=== PATIENT | female | born 1935 | race Caucasian/White ===

== ENCOUNTER 2019-06-10 11:19 | Inpatient (IN) | payer MEDICARE ==
[~2019-06-10] VITALS: Ht 157.5 cm; Wt 52.9 kg
--- NOTE | 2019-06-10 11:20 | NUR ---
ED Nurse Note: [facility] more than usual. Pt is AOx1 right now, noted weakness on LT extremity, pt is verbally responsive noted with episodes of confusion. Placed on bed and gown; hooked to hydroelectric systems technician; VSS, on RA. Will continue to monitor.
[2019-06-10] MEDS ORDERED: DULCOLAX10 MG RC (11:33)
[2019-06-10] MEDS ORDERED: ASPIR 8181 MG ORAL (11:33)
[2019-06-10] MEDS ORDERED: SENOKOT-S TABL1 EACH PO (11:33)
[2019-06-10] MEDS ORDERED: FLEET ENEMA133 M1 RC (11:33)
[2019-06-10] MEDS ORDERED: SYNTHROID100 MCG ORAL (11:33)
[2019-06-10] MEDS ORDERED: ATORVASTATIN CA40 MG ORAL (11:33)
[2019-06-10] MEDS ORDERED: MILK OF MA400 MG/51 ORAL (11:33)
[2019-06-10] MEDS ORDERED: CEPACOL SORE T1 EAC5 MM (11:33)
[2019-06-10] MEDS ORDERED: ACETAMINOPHEN325 M1 ORAL (11:33)
[2019-06-10] MEDS ORDERED: CYMBALTA60 MG ORAL (11:33)
[2019-06-10] MEDS ORDERED: NUEDEXTA 20-101 EAC1 PO (11:33)
[2019-06-10 11:45] VITALS: BP 112/60
--- NOTE | 2019-06-10 11:45 | NUR ---
ED Nurse Note: Pt went on head CT via gurisi accompanied by alfreda.
--- NOTE | 2019-06-10 12:06 | NUR ---
ED Nurse Note: Pt returned from CT on stable condition.
--- NOTE | 2019-06-10 12:07 | NUR ---
ED Nurse Note: x-ray on bedside.
--- NOTE | 2019-06-10 12:12 | Diagnostic Imaging Report ---
Indications: Altered mental status, history of stroke Technique: Spiral acquisitions obtained through the brain. Angled axial and coronal 5 x 5 mm slices were reconstructed. Total dose length product 1072 mGycm. CTDI vol(s) 53 mGy. Dose reduction achieved using automated exposure control Comparison: None. Findings: There is age-related enlargement of the ventricles and extra axial CSF spaces. There is periventricular low-attenuation, consistent with chronic microvascular ischemic changes There is an old lacunar infarct in the right woods radiata. There is some low-attenuation in the right side of the reyna and midbrain, could indicate a subacute lacunar infarct. There is encephalomalacia in the inferior left frontal lobe. No acute intracranial hemorrhage. No mass effect nor midline shift. Old deep white matter infarct is seen in the left frontal lobe. The calvarium is intact. Visualized orbits and sinuses are unremarkable. The mastoids are clear Impression: Chronic and age-related changes, as described Multiple old infarcts Possible subacute infarct of the right midbrain and reyna. MRI may be useful to clarify if clinically indicated Negative for acute intracranial bleed or mass effect The CT scanner at [facility] is accredited by the [employer] and the scans are performed using protocols designed to limit radiation exposure to as low as reasonably achievable to attain images of sufficient resolution adequate for diagnostic evaluation.
--- NOTE | 2019-06-10 12:18 | Emergency Room Report ---
History of Present Illness General Chief Complaint: Altered Level of Consciousness Source: Medical Record Present Illness HPI Patient presents from nursing facility with reports of change in mental status Patient's family is here and reports that the patient currently appears to be at baseline response level however over the past 3 days has had episodes of lethargy and weakness Patient had significant CVA several months ago with left-sided deficit also affecting her speech There was no reports of vomiting or diarrhea unknown regarding fevers Allergies: Coded Allergies: No Known Allergies (Unverified , 06/10/19) Patient History Limited by: medical condition Past Medical History: see triage record Reviewed Nursing Documentation: PMH: Agreed; PSxH: Agreed Nursing Documentation-PMH Hx Cerebrovascular Accident: Yes - left side weakness Review of Systems All Other Systems: limited - Other than the ones mentioned in the history of present illness all others are reviewed however they do stay limited due to the patient's mental status Physical Exam Vital Signs Date Time Temp Pulse Resp B/P (MAP) Pulse Ox O2 Delivery O2 Flow Rate FiO2 06/10/19 11:10 98.6 80 20 112/60 (77) 95 Room Air Sp02 EP Interpretation: reviewed, normal General Appearance: mild distress - Patient presents by paramedics with a wet cloth on her forehead eyes are closed Head: normocephalic, atraumatic Eyes: bilateral eye PERRL ENT: dry mucus membranes Neck: supple Respiratory: no respiratory distress, no retraction Cardiovascular #1: regular rate, rhythm Gastrointestinal: non tender, soft Musculoskeletal: other - Significant left-sided weakness patient not able to raise left arm Neurologic: other - Patient awakens with some physical stimuli, maintaining appropriate airway and gag reflex speech appears to be slurred however family reports, that this is baseline since her stroke Psychiatric: normal inspection Skin: no rash Lymphatic: no adenopathy Medical Decision Making Diagnostic Impression: Primary Impression: Altered level of consciousness Additional Impression: Dehydration ER Course Patient is a fairly complex patient with multiple differential to consideration including but not limited to cardiac cardiopulmonary neurological,, neurosurgical and vascular emergencies Patient's last known well is over 3 days old, and is unclear regarding the specific timeline Family reporting ' few days ago' patient appeared less interactive CT imaging showing questionable subacute findings in the midbrain and reyna Patient does not meet criteria for acute thrombolytics Also DNR status And admitted for further inpatient care Labs Test 06/10/19 12:16 White Blood Count 8.2 K/UL (4.8-10.8) Red Blood Count 3.64 M/UL (4.20-5.40) Hemoglobin 11.6 G/DL (12.0-16.0) Hematocrit 34.6 % (37.0-47.0) Mean Corpuscular Volume 95 FL (80-99) Mean Corpuscular Hemoglobin 31.8 PG (27.0-31.0) Mean Corpuscular Hemoglobin Concent 33.3 G/DL (32.0-36.0) Red Cell Distribution Width 12.4 % (11.6-14.8) Platelet Count 477 K/UL (150-450) Mean Platelet Volume 6.2 FL (6.5-10.1) Neutrophils (%) (Auto) 74.3 % (45.0-75.0) Lymphocytes (%) (Auto) 10.6 % (20.0-45.0) Monocytes (%) (Auto) 10.7 % (1.0-10.0) Eosinophils (%) (Auto) 2.4 % (0.0-3.0) Basophils (%) (Auto) 2.0 % (0.0-2.0) Sodium Level 137 MMOL/L (136-145) Potassium Level 4.2 MMOL/L (3.5-5.1) Chloride Level 99 MMOL/L (98-107) Carbon Dioxide Level 30 MMOL/L (21-32) Anion Gap 8 mmol/L (5-15) Blood Urea Nitrogen 16 mg/dL (7-18) Creatinine 0.6 MG/DL (0.55-1.30) Estimat Glomerular Filtration Rate > 60 mL/min (>60) Glucose Level 100 MG/DL (74-106) Lactic Acid Level 1.40 mmol/L (0.4-2.0) Calcium Level 9.9 MG/DL (8.5-10.1) Total Bilirubin 0.3 MG/DL (0.2-1.0) Aspartate Amino Transf (AST/SGOT) 27 U/L (15-37) Alanine Aminotransferase (ALT/SGPT) 20 U/L (12-78) Alkaline Phosphatase 137 U/L (46-116) Total Creatine Kinase 36 U/L (26-308) Creatine Kinase MB 1.2 NG/ML (0.0-3.6) Creatine Kinase MB Relative Index 3.3 Troponin I 0.000 ng/mL (0.000-0.056) Pro-B-Type Natriuretic Peptide 271 pg/mL (0-125) Total Protein 7.2 G/DL (6.4-8.2) Albumin 2.9 G/DL (3.4-5.0) Globulin 4.3 g/dL Albumin/Globulin Ratio 0.7 (1.0-2.7) Lipase 284 U/L (73-393) Rhythm Strip Diag. Results EP Interpretation: yes Rate: 78 Rhythm: NSR, no PVC's, no ectopy Chest X-Ray Diagnostic Results Chest X-Ray Diagnostic Results : Chest X-Ray Ordered: Yes # of Views/Limited/Complete: 1 View Indication: Chest Pain EP Interpretation: Yes Interpretation: no consolidation, no effusion, no pneumothorax Impression: No acute disease Electronically Signed by: Roseann Grayson DO CT/MRI/US Diagnostic Results CT/MRI/US Diagnostic Results : Impression CT head: Impression: Chronic and age-related changes, as described Multiple old infarcts Possible subacute infarct of the right midbrain and reyna. MRI may be useful to clarify if clinically indicated Negative for acute intracranial bleed or mass effect Last Vital Signs Date Time Temp Pulse Resp B/P (MAP) Pulse Ox O2 Delivery O2 Flow Rate FiO2 06/10/19 11:10 98.6 80 20 112/60 (77) 95 Room Air Status: unchanged Disposition: ADMITTED INPATIENT Condition: Critical Roseann Grayson DO Jun 10, 2019 12:18
[2019-06-10 12:52] VITALS: BP 142/67
--- NOTE | 2019-06-10 12:52 | Diagnostic Imaging Report ---
Indication: Chest pain Technique: One view of the chest Comparison: none Findings: There is a large hiatal hernia. There is evidence of a left-sided pleural effusion. There may be some atelectasis or consolidation at the left lung base. Right lung pleural space, left upper lung are clear. The heart is borderline enlarged. Impression: Left basilar pleural fluid and possibly parenchymal atelectasis and/or consolidation Large hiatal hernia Borderline cardiomegaly
[2019-06-10 12:55] LABS: EOSINOPHILS % (AUTO) 2.4 % (0.0-3.0); HEMATOCRIT 34.6 % (37.0-47.0); HEMOGLOBIN 11.6 G/DL (12.0-16.0); LYMPHOCYTES % (AUTO) 10.6 % (20.0-45.0); MEAN CORPUSCULAR VOLUME 95 FL (80-99); MONOCYTES % (AUTO) 10.7 % (1.0-10.0); NEUTROPHILS % (AUTO) 74.3 % (45.0-75.0); PLATELET COUNT 477 K/UL (150-450); RED BLOOD COUNT 3.64 M/UL (4.20-5.40); RED CELL DISTRIBUTION WIDTH 12.4 % (11.6-14.8); WHITE BLOOD COUNT 8.2 K/UL (4.8-10.8)
[2019-06-10 13:02] LABS: ANION GAP 8 mmol/L (5-15); BLOOD UREA NITROGEN 16 mg/dL (7-18); CALCIUM 9.9 MG/DL (8.5-10.1); CARBON DIOXIDE 30 MMOL/L (21-32); CHLORIDE 99 MMOL/L (98-107); CREATININE 0.6 MG/DL (0.55-1.30); POTASSIUM 4.2 MMOL/L (3.5-5.1); SODIUM 137 MMOL/L (136-145)
[2019-06-10 13:17] LABS: ALANINE AMINOTRANSFERASE 20 U/L (12-78); ALBUMIN 2.9 G/DL (3.4-5.0); ALBUMIN/GLOBULIN RATIO 0.7 (1.0-2.7); ALKALINE PHOSPHATASE 137 U/L (46-116); ASPARTATE AMINO TRANSFERASE 27 U/L (15-37); BILIRUBIN,TOTAL 0.3 MG/DL (0.2-1.0); CKMB 1.2 NG/ML (0.0-3.6); CREATINE KINASE 36 U/L (26-308)
--- NOTE | 2019-06-10 14:18 | NUR ---
ED Nurse Note: Pt went on MRI, on stable condition.
[2019-06-10 14:58] VITALS: BP 153/84
--- NOTE | 2019-06-10 15:42 | Diagnostic Imaging Report ---
Indication: Altered mental status Technique: sagittal T1 fast spin echo, axial T1 FLAIR, axial T2 FLAIR, axial T2 FS PROPELLER, axial T2* GRE, axial diffusion weighted images. ADC and exponential ADC maps generated Comparison: No comparison MRIs. Reference made to brain CT performed 2 hours prior Findings: There are multiple scattered foci of restricted diffusion. There is a punctate cortical focus in the high right parietal lobe. There is a small punctate focus in the posterior right temporal white matter. There is a slightly larger, still small cortical abnormality in the right occipital lobe periphery. There is a subtle and fairly faint focus in the posterior right parietal rosales-white junction, image 23 of series 3. There is a rim of abnormal diffusion activity surrounding lacunar infarct in the right woods radiata. The rim appears to be low signal on the ADC map, so could represent a late subacute component of that infarct versus reinfarction. No abnormal foci of restricted diffusion are demonstrated to correspond to the pontine/midbrain findings on recent CT scan and there is no T2 abnormality; that finding was presumably artifactual, probably due to beam hardening artifact. No acute hemorrhage. No mass effect nor midline shift. There is periventricular deep white matter high T2 signal, consistent with chronic microvascular ischemic change. There is mild age-related enlargement of the ventricles and extra axial CSF spaces. Visualized orbits and sinuses are unremarkable. There is sclerosis of the nasofrontal junction, also evident an better demonstrated on prior CT scan. Impression: Multiple right-sided small acute infarcts, appearing to be within the right posterior cerebral artery distribution Slightly increased diffusion signal surrounding remote right woods radiata lacunar infarct, may indicate a late subacute component to that infarct or peripheral reinfarction No abnormality of the midbrain demonstrated; findings reported on recent CT scan presumably artifactual Age-related volume loss and chronic periventricular deep white matter high T2 signal consistent with chronic microvascular ischemic change Images previously reviewed in person with Dr. Crawford
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
--- NOTE | 2019-06-10 17:15 | NUR ---
ED Nurse Note: Pt's VSS, satting at 96% on RA; NAD, daughter on bedside.
[2019-06-10 17:25] VITALS: BP 146/58
--- NOTE | 2019-06-10 17:25 | NUR ---
ED Nurse Note: Offered sandwich and apple juice.
--- NOTE | 2019-06-10 19:15 | NUR ---
HAND-OFF: Report given to Lesvia ANDRADE.
--- NOTE | 2019-06-10 19:35 | NUR ---
ED Nurse Note: Recieved report to resume care, pt in bed awake and alert and eating dinner tray with family at bedside, pt on monitoring, IV site patent, denies chest pain or any pain, pt has room for hopspital admisison, will call report when bed available and transfer for admit, nad or changes noted at this time.
[2019-06-10 19:45] VITALS: BP 140/66
--- NOTE | 2019-06-10 20:05 | NUR ---
ED Nurse Note: Report called to floor nurse LUPE Hurtado, pt being taken to floor unit via chyaarisi for admisison, family at bedside and present, pt being taken to unit via penny with LUPE Coyne and [employer].
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
[2019-06-10 20:30] VITALS: BP 136/62
[2019-06-10] MEDS ORDERED: Omnipaque 350 100ml vial INJ PRN ×2 (20:30)
--- NOTE | 2019-06-10 20:30 | NUR ---
NURSE NOTES: Patient arrived to the unit @2029 via gurney accompanied by two RN's. Patient's daughter also arrived along with the patient. Received report from Lesvia, the ED RN. Patient is awake, alert, and responsive. Breathing regular and unlabored on RA with no S/S of SOB noted at this time. Patient denies any pain or discomfort at this time. IV access is on the LFA, 20G, patent, intact, and saline locked. Patient's left side is weak/paralyzed due to previous CVA per the patient's daughter. Patient has a Khan catheter in place per MD orders. Belongings list reviewed and signed. Placed patient on the security monitor, reading sinus rhythm. Bed in lowest position, breaks engaged, side rails up x3, and call light is within reach at all times. All other needs attended to, vitals within normal limits, patient remains stable, will continue to monitor.
--- NOTE | 2019-06-10 21:00 | NUR ---
NURSE NOTES: Upon assessment of the patient's Khan catheter, noted that it was not draining properly when they placed it in the ER. Removed the catheter and re-inserted a new one. Khan catheter is now properly in place, draining yellow urine. Patient remains in stable condition.
[2019-06-10] MEDS: Atorvastatin 20mg tab ORAL SCH (22:48)
[2019-06-10] MEDS: Nuedexta Capsule 20/10mg ORAL SCH (22:49)
[2019-06-11] VITALS: BP 140/59
[2019-06-11 04:00] VITALS: BP 123/50
--- NOTE | 2019-06-11 07:18 | NUR ---
HAND-OFF: Report given to LUPE Ng. Patient remains stable, plan of care endorsed.
--- NOTE | 2019-06-11 07:21 | NUR ---
NURSE NOTES: Nurse report given by LUPE Hurtado. Patient's sleeping in bed, breathing regular and unlabored, no s/s of pain, no s/s of distress or SOB. Bed low and locked, call light within reach, side rails x 3, bed alarm is armed. IV is saline locked, flushed, asymptomatic. Khan is intact, draining well, no sediments noted in the urine, foul urine smell noted. Will continue to monitor.
[2019-06-11 07:40] LABS: BASOPHILS % (AUTO) 2.1 % (0.0-2.0); EOSINOPHILS % (AUTO) 3.5 % (0.0-3.0); HEMATOCRIT 32.9 % (37.0-47.0); HEMOGLOBIN 11.1 G/DL (12.0-16.0); LYMPHOCYTES % (AUTO) 12.4 % (20.0-45.0); MEAN CORPUSCULAR VOLUME 95 FL (80-99); MONOCYTES % (AUTO) 13.9 % (1.0-10.0); NEUTROPHILS % (AUTO) 68.1 % (45.0-75.0); PLATELET COUNT 495 K/UL (150-450); RED BLOOD COUNT 3.47 M/UL (4.20-5.40); RED CELL DISTRIBUTION WIDTH 12.3 % (11.6-14.8); WHITE BLOOD COUNT 7.2 K/UL (4.8-10.8)
[2019-06-11 08:00] VITALS: BP 140/67
[2019-06-11 08:10] LABS: ANION GAP 9 mmol/L (5-15); BLOOD UREA NITROGEN 15 mg/dL (7-18); CALCIUM 9.6 MG/DL (8.5-10.1); CARBON DIOXIDE 29 MMOL/L (21-32); CHLORIDE 100 MMOL/L (98-107); CREATININE 0.6 MG/DL (0.55-1.30); POTASSIUM 3.8 MMOL/L (3.5-5.1); SODIUM 138 MMOL/L (136-145)
[2019-06-11] MEDS: Nuedexta Capsule 20/10mg ORAL SCH ×2 (10:09→22:11)
--- NOTE | 2019-06-11 10:31 | Diagnostic Imaging Report ---
Indication: Left-sided weakness Technique: Grayscale and duplex images of the bilateral extracranial carotid vessels Comparison: none Findings: Bilaterally, grayscale and duplex images demonstrate atherosclerotic plaquing resulting in less than 50% diameter stenosis. Normal Doppler flow velocities and waveforms. Patent bilateral vertebral arteries, antegrade flow. Impression: Less than 50% diameter stenosis bilaterally All stenosis was measured based on the NASCET criteria. Velocity criteria are extrapolated from diameter data as defined by the Society of radiologists in ultrasound consensus conference. Radiology 2003:229; 340-346
[2019-06-11 12:00] VITALS: BP 131/59
--- NOTE | 2019-06-11 13:55 | Cardiology Progress Note ---
Assessment/Plan Assessment/Plan [id number] mutipl [place]va in [facility] makes less likley that a cardioembolic issue is present bubbl estudy was neg antiplt statin tele observation ziopatch as out pt d/w dtr Objective Last 24 Hour Vital Signs Date Time Temp Pulse Resp B/P (MAP) Pulse Ox O2 Delivery O2 Flow Rate FiO2 06/11/19 12:00 80 06/11/19 12:00 97.7 76 18 131/59 (83) 97 06/11/19 09:00 Room Air 06/11/19 08:00 74 06/11/19 08:00 97.9 88 20 140/67 (91) 98 06/11/19 04:00 75 06/11/19 04:00 98.0 78 20 123/50 (74) 97 06/11/19 00:00 78 06/11/19 00:00 98.4 70 20 140/59 (86) 96 06/10/19 22:57 Room Air 06/10/19 20:30 78 06/10/19 20:30 97.5 77 20 136/62 (86) 95 06/10/19 20:15 98.6 90 16 140/66 98 Room Air 06/10/19 19:45 98.6 90 16 140/66 98 Room Air 06/10/19 17:25 98.6 97 18 146/58 96 Room Air 06/10/19 14:58 98.6 82 15 153/84 95 Room Air Intake and Output 06/10/19 06/11/19 19:00 07:00 Intake Total 120 ml Output Total 150 ml Balance -30 ml Intake Oral 120 ml Output Urine Total 150 ml # Voids 2 Laboratory Tests Test 06/11/19 05:46 White Blood Count 7.2 K/UL (4.8-10.8) Red Blood Count 3.47 M/UL (4.20-5.40) L Hemoglobin 11.1 G/DL (12.0-16.0) L Hematocrit 32.9 % (37.0-47.0) L Mean Corpuscular Volume 95 FL (80-99) Mean Corpuscular Hemoglobin 32.0 PG (27.0-31.0) H Mean Corpuscular Hemoglobin Concent 33.8 G/DL (32.0-36.0) Red Cell Distribution Width 12.3 % (11.6-14.8) Platelet Count 495 K/UL (150-450) H Mean Platelet Volume 5.8 FL (6.5-10.1) L Neutrophils (%) (Auto) 68.1 % (45.0-75.0) Lymphocytes (%) (Auto) 12.4 % (20.0-45.0) L Monocytes (%) (Auto) 13.9 % (1.0-10.0) H Eosinophils (%) (Auto) 3.5 % (0.0-3.0) H Basophils (%) (Auto) 2.1 % (0.0-2.0) H Sodium Level 138 MMOL/L (136-145) Potassium Level 3.8 MMOL/L (3.5-5.1) Chloride Level 100 MMOL/L (98-107) Carbon Dioxide Level 29 MMOL/L (21-32) Anion Gap 9 mmol/L (5-15) Blood Urea Nitrogen 15 mg/dL (7-18) Creatinine 0.6 MG/DL (0.55-1.30) Estimat Glomerular Filtration Rate > 60 mL/min (>60) Glucose Level 85 MG/DL (74-106) Calcium Level 9.6 MG/DL (8.5-10.1) Thyroid Stimulating Hormone (TSH) 0.281 uiU/mL (0.358-3.740) Microbiology Date/Time Source Procedure Growth Status 06/10/19 12:16 Nasal Nares - Final Complete 06/10/19 12:16 Nasal Nares - Final Complete Danny Villagran MD Jun 11, 2019 13:55
--- NOTE | 2019-06-11 13:55 | NUR ---
PT EVALUATION NOTE Patient seen for initial evaluation. Patient presents with weakness following diagnosis of CVA with impaired balance and mobility. Patient requires max assist of 2 to come to sitting at the EOB. Patient unable to sit unsupported at the EOB, requires max assistance to sit at EOB. Patient can sit at EOB without assistance if holding on to bedrail with R hand. Poor head control in sitting. Patient unable to stand or transfer at this time due to weakness. Patient will benefit from skilled inpatient PT intervention to address strength, balance and safety to increase level of functional mobility. Recommend discharge to SNF for further rehab once medically cleared by MD. DME needs to be determined based on patient's progress. Addendum: 06/11/19 at 1445 by EDITH LEE PT Amended: Links added.
--- NOTE | 2019-06-11 15:32 | Diagnostic Imaging Report ---
. ndication: Altered mental status, multiple infarcts on prior brain MRI Technique: IV administration nonionic contrast. Spiral acquisitions obtained through the neck. Multiplanar and 3-D reconstructions were generated. Total dose length product 132 mGycm. CTDIvol(s) one, 34, 3 mGy. Dose reduction achieved using automated exposure control Comparison: none Findings: Unremarkable aortic arch. Patent nonstenotic right brachiocephalic artery. Patent nonstenotic right common carotid artery. There is atherosclerotic plaquing at the origin of the right internal carotid artery, but no significant stenosis is evident. Patent nonstenotic but tortuous left common carotid artery. The left internal carotid artery is patent, without significant stenosis. Patent nonstenotic right proximal subclavian artery. Patent nonstenotic right vertebral artery. Vertebral arteries are codominant. There is separate origin of the left vertebral artery off the aortic arch. Left vertebral artery is patent, without significant stenosis. The upper aerodigestive tract is unremarkable. No cervical mass or adenopathy demonstrated. There is a subcentimeter nodule in the upper pole of the left thyroid lobe. The included upper lungs are clear. The included upper mediastinum is unremarkable. The bones demonstrate degenerative spondylosis changes of the cervical spine Impression: No evidence of significant extracranial cerebrovascular insufficiency Incidental findings as noted, including subcentimeter left upper pole thyroid nodule, degenerative cervical spondylosis The CT scanner at [facility] is accredited by the [employer] and the scans are performed using protocols designed to limit radiation exposure to as low as reasonably achievable to attain images of sufficient resolution adequate for diagnostic evaluation.
[2019-06-11 16:00] VITALS: BP 121/68
--- NOTE | 2019-06-11 17:01 | Geriatric Progress Note ---
Assessment/Plan Problems: (1) Embolic cerebral infarction (2) Hemiparesis affecting nondominant side as late effect of cerebrovascular accident (3) Frontal lobe and executive function deficit (4) History of traumatic head injury (5) History of trauma to spine (6) Hypertension (7) Dyslipidemia (8) Chronic pain syndrome (9) Pseudobulbar affect (10) Osteoarthritis (11) History of joint surgery Assessment/Plan Discussed with Dr. Jarquin, Dr. Villagran. Given lack of discernible posterior circulation stenosis or malformation, and lack of cardiac source, substitution of Plavix appears to be only available intervention. Frequent PACs does raise possibility of paf, but no evidence thus far. Should have Ziopatch as outpatient. Because oversupplementation with T4 might predispose to dysrhythmia, will check T4, total T3, and decrease supplement to 88mcg. D/c Khan, monitor output. Checked with [facility], will not have coverage at SNF level because of recent stay. Discussed in detail with dtr, wants to d/c to home in [place], needs hospital bed, other DME. Some arrangements may have been made by [facility], but will need additional assistance from d/c planning Discussed with: patient, family, hospital staff Subjective Interval Events Patient alert, reports occasional mild L chest pain, but not present currently. Otherwise reports being comfortable. Per staff, eating well when fed. P.T. documents needing A x 2 to EOB. Labs notable only for mildly suppressed TSH. Imaging reveals <50% stenosis on u/s of vertebral artery. CTA reveals atherosclerosis but no clinically significant stenosis. Echo unrevealing without a shunt. Constitutional: Reports: pain - as above Eye: Reports: blurred vision - but not definitively changed Respiratory: Denies: shortness of breath Gastrointestinal/Abdominal: Denies: abdominal pain, nausea Genitourinary: Denies: dysuria Geriatric Geriatric Last 24 Hour Vital Signs Date Time Temp Pulse Resp B/P (MAP) Pulse Ox O2 Delivery O2 Flow Rate FiO2 06/11/19 12:00 80 06/11/19 12:00 97.7 76 18 131/59 (83) 97 06/11/19 09:00 Room Air 06/11/19 08:00 74 06/11/19 08:00 97.9 88 20 140/67 (91) 98 06/11/19 04:00 75 06/11/19 04:00 98.0 78 20 123/50 (74) 97 06/11/19 00:00 78 06/11/19 00:00 98.4 70 20 140/59 (86) 96 06/10/19 22:57 Room Air 06/10/19 20:30 78 06/10/19 20:30 97.5 77 20 136/62 (86) 95 06/10/19 20:15 98.6 90 16 140/66 98 Room Air 06/10/19 19:45 98.6 90 16 140/66 98 Room Air 06/10/19 17:25 98.6 97 18 146/58 96 Room Air Intake and Output 06/10/19 06/11/19 19:00 07:00 Intake Total 120 ml Output Total 150 ml Balance -30 ml Intake Oral 120 ml Output Urine Total 150 ml # Voids 2 Laboratory Tests Test 06/11/19 05:46 White Blood Count 7.2 K/UL (4.8-10.8) Red Blood Count 3.47 M/UL (4.20-5.40) L Hemoglobin 11.1 G/DL (12.0-16.0) L Hematocrit 32.9 % (37.0-47.0) L Mean Corpuscular Volume 95 FL (80-99) Mean Corpuscular Hemoglobin 32.0 PG (27.0-31.0) H Mean Corpuscular Hemoglobin Concent 33.8 G/DL (32.0-36.0) Red Cell Distribution Width 12.3 % (11.6-14.8) Platelet Count 495 K/UL (150-450) H Mean Platelet Volume 5.8 FL (6.5-10.1) L Neutrophils (%) (Auto) 68.1 % (45.0-75.0) Lymphocytes (%) (Auto) 12.4 % (20.0-45.0) L Monocytes (%) (Auto) 13.9 % (1.0-10.0) H Eosinophils (%) (Auto) 3.5 % (0.0-3.0) H Basophils (%) (Auto) 2.1 % (0.0-2.0) H Sodium Level 138 MMOL/L (136-145) Potassium Level 3.8 MMOL/L (3.5-5.1) Chloride Level 100 MMOL/L (98-107) Carbon Dioxide Level 29 MMOL/L (21-32) Anion Gap 9 mmol/L (5-15) Blood Urea Nitrogen 15 mg/dL (7-18) Creatinine 0.6 MG/DL (0.55-1.30) Estimat Glomerular Filtration Rate > 60 mL/min (>60) Glucose Level 85 MG/DL (74-106) Calcium Level 9.6 MG/DL (8.5-10.1) Thyroid Stimulating Hormone (TSH) 0.281 uiU/mL (0.358-3.740) Current Medications Medications (Trade) Dose Ordered Sig/Sharda Route PRN Reason Start Time Stop Time Status Last Admin Dose Admin Acetaminophen (Tylenol) 650 mg Q4H PRN ORAL Mild Pain (Pain Scale 1-3) 06/10/19 17:00 07/10/19 16:59 Acetaminophen (Tylenol) 650 mg Q4H PRN ORAL fever 06/10/19 17:00 07/10/19 16:59 Atorvastatin Calcium (Lipitor) 40 mg BEDTIME ORAL 06/10/19 21:00 07/10/19 20:59 06/10/19 22:48 Cetylpyridinium Chloride (Cepacol) 1 lozg Q2H PRN KIERAN Pain Scale (3-5) 06/10/19 17:00 07/10/19 16:59 Clopidogrel Bisulfate (Plavix) 75 mg DAILY ORAL 06/10/19 20:30 07/10/19 20:29 06/11/19 10:09 Dextromethorphan/ Quinidine (Nuedexta Capsule) 1 cap Q12HR ORAL 06/10/19 21:00 07/10/19 20:59 06/11/19 10:09 Dextrose (Dextrose 50%) 25 ml Q30M PRN IV Hypoglycemia 06/10/19 17:00 07/10/19 16:59 Dextrose (Dextrose 50%) 50 ml Q30M PRN IV Hypoglycemia 06/10/19 17:00 07/10/19 16:59 Duloxetine HCl (Cymbalta) 60 mg DAILY ORAL 06/11/19 09:00 07/11/19 08:59 06/11/19 10:09 Iohexol (Omnipaque) 100 mg NOW PRN INJ Radiology Procedure 06/10/19 20:30 06/12/19 20:23 Iohexol (Omnipaque) 100 mg NOW PRN INJ Radiology Procedure 06/10/19 20:30 06/12/19 20:23 Levothyroxine Sodium (Synthroid) 100 mcg DAILY@0630 ORAL 06/11/19 06:30 07/11/19 06:29 06/11/19 06:12 Height (Feet): 5 Height (Inches): 2.00 Weight (Pounds): 145 General Appearance: no apparent distress, alert Head: normocephalic, atraumatic Eyes: bilateral anicteric ENT: normal voice Neck: full range of motion, no mass Respiratory: lungs clear, decreased breath sounds Cardiovascular: regular rate, rhythm - frequent PACs on monitor Gastrointestinal: normal bowel sounds, non tender, soft, no mass, no organomegaly, non-distended Musculoskeletal: no calf tenderness Edema: no edema noted Generalized Neurologic: motor weakness - L hemiparesis without change Eros Lee MD Jun 11, 2019 17:01
--- NOTE | 2019-06-11 18:28 | NUR ---
NURSE NOTES: D/C elder per Dr. Lee's order. Output from the elder was 600cc. Elder catheter tip intact when removed, no bleeding. Will monitor for residual.
--- NOTE | 2019-06-11 19:24 | NUR ---
NURSE NOTES: Received report from LUPE Ng. Patient is in bed, awake and responsive. Breathing regular and unlabored on RA with no S/S of SOB noted at this time. Patient's food is still at bedside. Patient stated "I will eat a little more later." IV access is on LFA 20G, saline locked. Bed remains in lowest position, breaks engaged, bed-alarm on, side rails x3, and call light is within reach at all times. All other needs attended to, patient remains stable, will continue to monitor.
--- NOTE | 2019-06-11 19:24 | NUR ---
HAND-OFF: Report given to LUPE Hurtado. Patient's stable, plan of care endorsed.
--- NOTE | 2019-06-11 19:31 | NUR ---
CASE MANAGEMENT: REVIEW 83 YEAR OLD FEMALE BIBA FROM [facility] CC: ALOC . LETHARGY . WEAKNESS SI: ALOC T 98.6 HR 80 RR 20 BP 142/67 SAT 95% ROOM AIR PLT CT 477 BNP [address] IMAGING SHOWING QUESTIONABLE SUBACUTE FINDINGS IN THE MIDBRAIN AND SCOTT . NEGATIVE FOR ACUTE INTRACRANIAL BLEED OR MASS EFFECT IS: SYNTHROID 100MCG X1 PT EVAL PENDING PATIENT ADMITTED TO TELEMETRY UNIT 06/10/2019 DCP: PATIENT IS FROM [facility]
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
[2019-06-11 20:00] VITALS: BP 121/52
--- NOTE | 2019-06-11 21:45 | NUR ---
NURSE NOTES: Patient's post-void residual was 78mls. Able to void with no abnormalities.
[2019-06-11] MEDS: Atorvastatin 20mg tab ORAL SCH (22:11)
[2019-06-12] VITALS: BP 131/63
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
[2019-06-12 04:00] VITALS: BP 132/68
--- NOTE | 2019-06-12 07:29 | NUR ---
NURSE NOTES: Nurse report given by LUPE Hurtado. Patient's sleeping in bed with her eye masks on, appeared to be snoring, patient's laying semi-morrell, no s/s of distress or SOB, breathing regular and unlabored. Bed low and locked, call light within reach, side rails x 2, bed alarm is armed, cardiac surgeon is on. IV is saline locked, patent, flushed well and asymptomatic. Will continue to monitor.
--- NOTE | 2019-06-12 07:29 | NUR ---
HAND-OFF: Report given to LUPE Ng. Patient in stable condition, plan of care endorsed.
[2019-06-12 08:00] VITALS: BP 142/62
[2019-06-12 08:18] LABS: CHOLESTEROL 148 MG/DL (< 200); HDL CHOLESTEROL 69 MG/DL (40-60); TRIGLYCERIDES 49 MG/DL (30-150)
[2019-06-12] MEDS: Nuedexta Capsule 20/10mg ORAL SCH ×2 (09:26→21:10)
[2019-06-12 11:59] VITALS: BP 123/63
--- NOTE | 2019-06-12 12:58 | Diagnostic Imaging Report ---
Indication: Altered mental status Technique: Precontrast spiral acquisitions obtained through the brain. IV administration nonionic contrast. Arterial phase spiral acquisitions obtained through the brain. Multiplanar and 3-D reconstructions were generated. Total dose length product 863, 899mGycm. CTDIvol(s) 35, one, 34, 3, 35 mGy. Dose reduction achieved using automated exposure control Comparison: Noncontrast CT compared to 06/10/2019. Also comparison brain MRI 06/10/2019 Findings: Precontrast images again demonstrate an old lacunar infarct in the right woods radiata. Again demonstrated is age-related enlargement of the ventricles and extra-axial CSF spaces and fairly extensive periventricular deep white matter low-attenuation consistent with chronic microvascular ischemic change. Again demonstrated is an area of encephalomalacia in the inferior left frontal lobe inferiorly. Visualized orbits are unremarkable. Unusual sclerosis of the nasofrontal junction and inferior frontal bone again demonstrated. The mastoids are clear. The calvarium is intact. The orbits are unremarkable. Radiographic images demonstrate codominant bilateral distal vertebral arteries both PICA cyst are patent. Both superior cerebellar arteries are visualized, patent. The P1 segments of both posterior cerebral artery are patent without definite significant stenosis. The right posterior communicating artery is visualized, patent. However, there is a high-grade stenosis of the origin of the P2 segment of the right posterior cerebral artery. The distal posterior cerebral artery distal to this is patent, somewhat smaller in caliber than the contralateral side. Anterior circulation demonstrates patent nonstenotic distal internal carotid artery on the right. There is a high-grade stenosis of the right A1 segment. In addition, there is a near occlusive stenosis of the proximal A2 segment of the right anterior cerebral artery. There is also a high-grade stenosis of the proximal to mid pericallosal branch of the anterior cerebral artery on the right no anterior communicating artery is demonstrated. The right M1 segment is patent proximally without significant stenosis. However, there is a stenosis, likely significant, of the distal M1 segment. On the left, the distal internal carotid artery, anterior cerebral artery, middle cerebral artery and proximal branches appear to be patent without significant stenosis. No evidence of aneurysm or vascular malformation is demonstrated. The veins and dural sinuses appear unremarkable. No unusual serial phase contrast enhancement is evident. Impression: Multiple intracranial stenoses, including the proximal P2 segment of the right posterior cerebral artery, the distal M1 segment of the right middle cerebral artery, and the A2 segment and pericallosal branch of the right anterior cerebral artery Other stable noncontrast CT findings as reported above and previously Findings discussed by phone with Dr. Blackman at the time of interpretation The CT scanner at [facility] is accredited by the [employer] and the scans are performed using protocols designed to limit radiation exposure to as low as reasonably achievable to attain images of sufficient resolution adequate for diagnostic evaluation.
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
[2019-06-12 16:00] VITALS: BP 133/74
--- NOTE | 2019-06-12 17:24 | NUR ---
CASE MANAGEMENT:DISCHARGE PLANNING PATIENT HAS BEEN REFERRED TO [facility] P: [phone] F: [phone]
--- NOTE | 2019-06-12 18:05 | Geriatric Progress Note ---
Assessment/Plan Problems: (1) Embolic cerebral infarction (2) Hemiparesis affecting nondominant side as late effect of cerebrovascular accident (3) Frontal lobe and executive function deficit (4) History of traumatic head injury (5) History of trauma to spine (6) Hypertension (7) Dyslipidemia (8) Chronic pain syndrome (9) Pseudobulbar affect (10) Osteoarthritis (11) History of joint surgery (12) Hypothyroidism (acquired) (13) Iatrogenic hyperthyroidism Assessment/Plan Patient returning to baseline, however functionally quite dependent. Will be stable for d/c tomorrow, but dtr requires multiple DME including [facility] for care at home. Awaiting D/c planning contact. Decrease T4 to 75 mcg/d. Continue other tx including Plavix. Ziopatch study as outpatient. Patient counselled to avoid OTC supplements which might interact with prescribed medications. Discussed with: patient, family, hospital staff Subjective Interval Events Patient brighter, with more engagement, questions about her prior OTC vitamin supplements, etc. No acute sxs. Voiding OK with Khan out. Eating well. TSH suppressed, FT4 increased. Given recent data re supplementation in elderly , will further decrease T4 dose. Discussed with Dr. Jarquin, evidence of several areas of R posterior circulation stenosis, likely associated with strokes. Evidence of L posterior circulation disease as well. However, multiple acute sites still raise issue of cardiac embolic source or transient low flow state from dysrhythmia. Respiratory: Denies: shortness of breath Cardiovascular: Denies: chest pain Gastrointestinal/Abdominal: Denies: abdominal pain Genitourinary: Denies: dysuria Geriatric Geriatric Last 24 Hour Vital Signs Date Time Temp Pulse Resp B/P (MAP) Pulse Ox O2 Delivery O2 Flow Rate FiO2 06/12/19 16:00 97.3 76 18 133/74 (93) 95 06/12/19 12:00 75 06/12/19 11:59 97.1 73 16 123/63 (83) 95 06/12/19 09:00 Room Air 06/12/19 08:00 63 06/12/19 08:00 97.7 77 19 142/62 (88) 96 06/12/19 04:00 97.4 71 18 132/68 (89) 96 06/12/19 04:00 74 06/12/19 00:00 75 06/12/19 00:00 97.7 66 18 131/63 (85) 95 06/11/19 21:00 Room Air 06/11/19 20:00 97.0 85 18 121/52 (75) 94 06/11/19 20:00 90 Intake and Output 06/11/19 06/12/19 19:00 07:00 Intake Total 200 ml Output Total 600 ml Balance -400 ml Intake Oral 200 ml Output Urine Total 600 ml # Voids 2 Laboratory Tests Test 06/12/19 05:59 Troponin I 0.000 ng/mL (0.000-0.056) Triglycerides Level 49 MG/DL (30-150) Cholesterol Level 148 MG/DL (< 200) LDL Cholesterol 63 mg/dL (<100) HDL Cholesterol 69 MG/DL (40-60) H Cholesterol/HDL Ratio 2.1 (3.3-4.4) L Thyroid Stimulating Hormone (TSH) 0.290 uiU/mL (0.358-3.740) Free Thyroxine 1.64 NG/DL (0.76-1.46) H Triiodothyonine (T3) Pending Current Medications Medications (Trade) Dose Ordered Sig/Sharda Route PRN Reason Start Time Stop Time Status Last Admin Dose Admin Acetaminophen (Tylenol) 650 mg Q4H PRN ORAL Mild Pain (Pain Scale 1-3) 06/10/19 17:00 07/10/19 16:59 Acetaminophen (Tylenol) 650 mg Q4H PRN ORAL fever 06/10/19 17:00 07/10/19 16:59 Atorvastatin Calcium (Lipitor) 40 mg BEDTIME ORAL 06/10/19 21:00 07/10/19 20:59 06/11/19 22:11 Cetylpyridinium Chloride (Cepacol) 1 lozg Q2H PRN KIERAN Pain Scale (3-5) 06/10/19 17:00 07/10/19 16:59 Clopidogrel Bisulfate (Plavix) 75 mg DAILY ORAL 06/10/19 20:30 07/10/19 20:29 06/12/19 09:26 Dextromethorphan/ Quinidine (Nuedexta Capsule) 1 cap Q12HR ORAL 06/10/19 21:00 07/10/19 20:59 06/12/19 09:26 Dextrose (Dextrose 50%) 25 ml Q30M PRN IV Hypoglycemia 06/10/19 17:00 07/10/19 16:59 Dextrose (Dextrose 50%) 50 ml Q30M PRN IV Hypoglycemia 06/10/19 17:00 07/10/19 16:59 Duloxetine HCl (Cymbalta) 60 mg DAILY ORAL 06/11/19 09:00 07/11/19 08:59 06/12/19 09:26 Iohexol (Omnipaque) 100 mg NOW PRN INJ Radiology Procedure 06/10/19 20:30 06/12/19 20:23 Iohexol (Omnipaque) 100 mg NOW PRN INJ Radiology Procedure 06/10/19 20:30 06/12/19 20:23 Levothyroxine Sodium (Synthroid) 88 mcg DAILY@0630 ORAL 06/12/19 06:30 07/11/19 06:29 06/12/19 06:32 Height (Feet): 5 Height (Inches): 2.00 Weight (Pounds): 116 General Appearance: no apparent distress, alert Head: normocephalic, atraumatic Eyes: bilateral anicteric ENT: normal voice Neck: full range of motion, no mass Respiratory: lungs clear Cardiovascular: regular rate, rhythm Gastrointestinal: normal bowel sounds, non tender, soft, no mass, no organomegaly, non-distended Musculoskeletal: no calf tenderness Edema: no edema noted Generalized Neurologic: alert, oriented x3 - possibly 2 at times., responsive, other - L dense hemiparesis Eros Lee MD Jun 12, 2019 18:05
--- NOTE | 2019-06-12 19:30 | NUR ---
NURSE NOTES: Received pt and report from LUPE Lucas. Observed pt resting in bed with both eyes closed; arousable to voice. Pt is A/Ox3. monitoring manager is in placed; pt is NSR. IV site intact, asymptomatic, and patent. Bed is in the lowest position and locked. Call light and bedside table is within reach. No signs/symptoms of acute distress noted at this time. Will continue plan of care.
--- NOTE | 2019-06-12 19:36 | NUR ---
HAND-OFF: Report given to LUPE Chacon. Patient's stable, plan of care endorsed.
[2019-06-12 20:00] VITALS: BP 117/63
[2019-06-12] MEDS: Atorvastatin 20mg tab ORAL SCH (21:10)
--- NOTE | 2019-06-12 21:24 | Cardiology Progress Note ---
Assessment/Plan Assessment/Plan [id number] mutipl cva in [place] makes less likley that a cardioembolic issue is present bubbl estudy was neg antiplt statin tele observation ziopatch as out pt d/w dtr Objective Last 24 Hour Vital Signs Date Time Temp Pulse Resp B/P (MAP) Pulse Ox O2 Delivery O2 Flow Rate FiO2 06/12/19 16:00 73 06/12/19 16:00 97.3 76 18 133/74 (93) 95 06/12/19 12:00 75 06/12/19 11:59 97.1 73 16 123/63 (83) 95 06/12/19 09:00 Room Air 06/12/19 08:00 63 06/12/19 08:00 97.7 77 19 142/62 (88) 96 06/12/19 04:00 97.4 71 18 132/68 (89) 96 06/12/19 04:00 74 06/12/19 00:00 75 06/12/19 00:00 97.7 66 18 131/63 (85) 95 Intake and Output 06/11/19 06/12/19 19:00 07:00 Intake Total 200 ml Output Total 600 ml Balance -400 ml Intake Oral 200 ml Output Urine Total 600 ml # Voids 2 Laboratory Tests Test 06/12/19 05:59 Troponin I 0.000 ng/mL (0.000-0.056) Triglycerides Level 49 MG/DL (30-150) Cholesterol Level 148 MG/DL (< 200) LDL Cholesterol 63 mg/dL (<100) HDL Cholesterol 69 MG/DL (40-60) H Cholesterol/HDL Ratio 2.1 (3.3-4.4) L Thyroid Stimulating Hormone (TSH) 0.290 uiU/mL (0.358-3.740) Free Thyroxine 1.64 NG/DL (0.76-1.46) H Triiodothyonine (T3) Pending Microbiology Date/Time Source Procedure Growth Status 06/10/19 12:16 Blood Blood Culture - Preliminary NO GROWTH AFTER 24 HOURS Resulted 06/10/19 12:16 Blood Blood Culture - Preliminary NO GROWTH AFTER 24 HOURS Resulted 06/10/19 12:16 Nasal Nares - Final Complete 06/10/19 12:16 Nasal Nares - Final Complete Danny Villagran MD Jun 12, 2019 21:24
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
[2019-06-13] VITALS: BP 126/72
--- NOTE | 2019-06-13 02:27 | NUR ---
NURSE NOTES: Observed pt asleep in bed. No signs/symptoms of acute distress noted at this time. Will continue plan of care.
[2019-06-13 04:00] VITALS: BP 127/65
--- NOTE | 2019-06-13 07:15 | NUR ---
NURSE NOTES: Nurse report given by LUPE Chacon. Patient's sleeping in bed, breathing regular and unlabored, no s/s of distress or SOB, no s/s of pain. Bed low and locked, call light within reach, side rails x 2, bed alarm is armed, command and control specialist is on. IV is saline locked, patent and asymptomatic. Will continue to monitor.
--- NOTE | 2019-06-13 07:38 | NUR ---
HAND-OFF: Report given to LUPE Lucas. Pt in bed eating breakfast. Plan of care endorsed.
[2019-06-13 08:00] VITALS: BP 138/81
[2019-06-13] MEDS: Nuedexta Capsule 20/10mg ORAL SCH ×2 (08:35→23:04)
[2019-06-13] MEDS ORDERED: PLAVIX75 MG ORAL (11:53)
[2019-06-13 12:00] VITALS: BP 129/56
--- NOTE | 2019-06-13 13:56 | NUR ---
[employer] NOTES SPOKE WITH PT'S DAUGHTER, REQUESTING DME ALSO REQUESTING DELIVERY FOR TOMORROW AM SO SHE CAN PREPARE THE HOUSE AND PUT CAREGIVERS IN PLACE. PLACED A CALL TO [facility] ORDER FAXED TO [phone]. PT ACCEPTED AT [facility]. Addendum: 06/13/19 at 1447 by RICARDO WILBURN RN RN PLACED A CALL TO [facility] TO VERIFY RECEIPT OF DOCUMENTS. PER CLEOPATRA IT TAKES TWO HOURS FOR DOCUMENTS TO SHOW IN HIS QUE. WILL CALL BACK.
--- NOTE | 2019-06-13 14:53 | NUR ---
NURSE NOTES: Spoke to Maya, office staff of Dr. Lee reporting that patient has been more agitated, confused and tried to climb out of bed. There is no PRN medication available at this time. Call daughterJuju multiple times the whole morning regarding patient's condition, and she said she will come by around 1430. Patient has been trying to get out of bed again. Keep yelling: " I want to , you are keeping me in correction, I want my daughter", etc. Nurse tried to explain to the patient it is dangerous for her to get out of bed, and she might fall but patient would not listen and kept yelling. Daughter just arrived at 1435, explained the situation to the daughter and told her that patient would be calm when her daughter is here but patient might change condition and tries to climb out of bed again and become agitated again when her daughter isn't here overnight with her. Daughter tried to calm her down and patient promised to stay in bed. Awaiting for Dr. Lee's response. Will continue to monitor closely.
--- NOTE | 2019-06-13 15:02 | NUR ---
NURSE NOTES: Spoke to Dr. Lee on the phone, no news order at this time. MD aware of patient's condition, inform that for now just closely monitor the patient and give talk therapy. MD will come check the patient later today. Nurse acknowledged.
[2019-06-13 16:00] VITALS: BP 144/82
--- NOTE | 2019-06-13 16:38 | NUR ---
HOME HEALTH CALL CALL RECEIVED FROM MORRIS WITH [facility]. REQUESTING TO BE INFORMED WHEN PAT[place] N[place] [facility] [phone]
--- NOTE | 2019-06-13 18:11 | Geriatric Progress Note ---
Assessment/Plan Problems: (1) Embolic cerebral infarction (2) Hemiparesis affecting nondominant side as late effect of cerebrovascular accident (3) Frontal lobe and executive function deficit (4) History of traumatic head injury (5) History of trauma to spine (6) Hypertension (7) Dyslipidemia (8) Chronic pain syndrome (9) Pseudobulbar affect (10) Osteoarthritis (11) History of joint surgery (12) Hypothyroidism (acquired) (13) Iatrogenic hyperthyroidism Assessment/Plan Patient s/p multiple small infarcts in R posterior circulation, now appears to be returning to normal. T4 decreased due to elevated FT4, suppressed TSH. Attempting to arrange [facility] as outpatient. DME being arranged, needs to be in place to allow discharge. Discussed status with dtr including outpatient care issues. Continue current medications. Discussed with: patient, family, hospital staff Subjective Interval Events Patient more alert, energetic. Has exhibited more disinhibited behavior, arguing with roommate, attempting to get out of bed. Impatient for responses. Asks multiple questions about using alcohol or narcotics to allow more physical therapy. Accepts answers, but will repeat questions. No new symptoms reported. Eating adequately. No difficulty with urinary voiding. Discussed with Isadora, case management. DME for discharge is being arranged. Patient requires hospital bed for head elevation to prevent aspiration, is unable to initiate or complete position changes on his own, and requires position changes to participate in ADLs with 24 hour caregiver who will be available at home. Patient also require wheelchair with elevated leg rests to participate in ADLs which the patient can do with caregiver assist. Constitutional: Denies: chills, fever Respiratory: Denies: cough, shortness of breath Cardiovascular: Denies: chest pain, palpitations Gastrointestinal/Abdominal: Denies: abdominal pain, nausea Genitourinary: Denies: dysuria Geriatric Geriatric Last 24 Hour Vital Signs Date Time Temp Pulse Resp B/P (MAP) Pulse Ox O2 Delivery O2 Flow Rate FiO2 06/13/19 12:00 70 06/13/19 12:00 98.1 78 18 129/56 (80) 96 06/13/19 09:00 83 06/13/19 09:00 Room Air 06/13/19 08:00 98.2 72 18 138/81 (100) 94 06/13/19 04:00 98.8 62 17 127/65 (85) 95 06/13/19 04:00 62 06/13/19 00:00 96.9 77 17 126/72 (90) 96 06/13/19 00:00 77 06/12/19 21:00 Room Air 06/12/19 20:00 98.0 77 18 117/63 (81) 94 06/12/19 20:00 77 Intake and Output 06/12/19 06/13/19 19:00 07:00 Intake Total 210 ml Balance 210 ml Intake Oral 210 ml # Voids 3 2 Current Medications Medications (Trade) Dose Ordered Sig/Sharda Route PRN Reason Start Time Stop Time Status Last Admin Dose Admin Acetaminophen (Tylenol) 650 mg Q4H PRN ORAL Mild Pain (Pain Scale 1-3) 06/10/19 17:00 07/10/19 16:59 06/12/19 21:17 Acetaminophen (Tylenol) 650 mg Q4H PRN ORAL fever 06/10/19 17:00 07/10/19 16:59 Atorvastatin Calcium (Lipitor) 40 mg BEDTIME ORAL 06/10/19 21:00 07/10/19 20:59 06/12/19 21:10 Cetylpyridinium Chloride (Cepacol) 1 lozg Q2H PRN KIERAN Pain Scale (3-5) 06/10/19 17:00 07/10/19 16:59 Clopidogrel Bisulfate (Plavix) 75 mg DAILY ORAL 06/10/19 20:30 07/10/19 20:29 06/13/19 08:35 Dextromethorphan/ Quinidine (Nuedexta Capsule) 1 cap Q12HR ORAL 06/10/19 21:00 07/10/19 20:59 06/13/19 08:35 Dextrose (Dextrose 50%) 25 ml Q30M PRN IV Hypoglycemia 06/10/19 17:00 07/10/19 16:59 Dextrose (Dextrose 50%) 50 ml Q30M PRN IV Hypoglycemia 06/10/19 17:00 07/10/19 16:59 Duloxetine HCl (Cymbalta) 60 mg DAILY ORAL 06/11/19 09:00 07/11/19 08:59 06/13/19 08:35 Levothyroxine Sodium (Synthroid) 75 mcg DAILY@0630 ORAL 06/13/19 06:30 07/11/19 06:29 06/13/19 05:53 Height (Feet): 5 Height (Inches): 2.00 Weight (Pounds): 116 General Appearance: no apparent distress, alert, non-toxic, other - disinhibited with loud verbalizations but directable. Eyes: bilateral anicteric ENT: normal voice Neck: full range of motion, no mass Respiratory: lungs clear, decreased breath sounds Cardiovascular: regular rate, rhythm Gastrointestinal: normal bowel sounds, non tender, soft, no mass, no organomegaly, non-distended Musculoskeletal: no calf tenderness Edema: no edema noted Generalized Neurologic: alert Psychiatric: other - disinhibited, loud, but appropriate in conservation Eros Lee MD Jun 13, 2019 18:11
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
--- NOTE | 2019-06-13 19:45 | NUR ---
HAND-OFF: Report given to LUPE Bell. Plan of care endorsed.
[2019-06-13 20:00] VITALS: BP 153/73
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
[2019-06-13] MEDS: Atorvastatin 20mg tab ORAL SCH (23:04)
[2019-06-14] VITALS: BP 153/77
[2019-06-14 04:00] VITALS: BP 152/72
--- NOTE | 2019-06-14 07:30 | NUR ---
NURSE NOTES: Nurse report given by LUPE Bell. Patient's agitated, confused, forgetful and keeps yelling: "help me, help me:; but when nurse came in to check with her, she stated she wants to get out of here, she wants to call the police. She's been more confused and agitated than yesterday. Tried to reality reoriented but unsuccessful. Bed low and locked, call light within reach, side rails x 3, bed alarm is armed, closely monitor next to her room. IV is saline locked, patent and asymptomatic. Will continue to monitor.
--- NOTE | 2019-06-14 07:30 | NUR ---
HAND-OFF: Report given to Berenice Ballesteros RN. Pt in stable condition.
[2019-06-14 08:00] VITALS: BP 157/75
[2019-06-14] MEDS: Nuedexta Capsule 20/10mg ORAL SCH ×2 (08:27→21:16)
--- NOTE | 2019-06-14 09:31 | NUR ---
RD ASSESSMENT & RECOMMENDATIONS SEE CARE ACTIVITY FOR COMPLETE ASSESSMENT DAILY ESTIMATED NEEDS: Needs based on Cardiac 52.7kg 25-30 kcals/kg 5546-5454 total kcals 1-1.2 g protein/kg 53-63 g total protein 25-30ml/kcal mL/kg 6582-4864 total fluid mLs NUTRITION DIAGNOSIS: Decreased sodium needs r/t HTN as evidenced by elev BP (152/72) (CURRENT DIET: Regular ms finely chopped) PO DIET RECOMMENDATIONS: Rec LOW NA diet/ texture per DIRECTOR OF SUPPLY CHAIN ADDITIONAL RECOMMENDATIONS: 1) Obtain calibrated bed scale wts 2) Updated labs as able 3) Monitor for continued good po intake -> will add Ensure qdaily w/ current variable intake 4) DIRECTOR OF [employer] eval for appropriate texture
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
[2019-06-14 12:00] VITALS: BP 141/75
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
--- NOTE | 2019-06-14 14:52 | NUR ---
CRAPS MANAGER NOTES SPOKE WITH PT'S DAUGHTER MECHELLE, INFORMED ME HOSPITAL BED WAS DELIVERED LAST NIGHT TO THE WRONG ADDRESS. PT WILL BE DISCHARGED TO [place]. PLACED A CALL TO [employer] SPOKE WITH BLADIMIR, PER BLADIMIR HE IS UNABLE TO DELIVER BED TO [place] UNTIL MONDAY DUE TO SCHEDULING. TIME OF DELIVER WILL BE BETWEEN 10-1PM.REQUESTED A CALL IF BED CAN BE DELIVERED EARLIER. DAUGHTER MADE AWARE. SPOKE WITH ANABEL FROM [facility] MADE AWARE OF PT TO DC MONDAY. I WILL CALL PRIOR TO DC. UPDATED ON DCP @ THIS TIME. [facility] [phone] [place] [address] [place] [address] [facility] [employer]ON IN LAW WILL BE AVAILABLE AT TIME OF DELIVERY [phone]
[2019-06-14 16:00] VITALS: BP_SYST 155; BP_SYST 167; BP_DIAS 66; BP_DIAS 87
--- NOTE | 2019-06-14 19:41 | NUR ---
HAND-OFF: Report given to LUPE Layne. Patient's still confused and anxious but stable, plan of care endorsed. Endorsed to receiving nurse that patient will be going home with Ziopatch, it has to stay on for 2 weeks and the patient's daughter will ship the patch back to Dr. Villagran's office. Informed receiving nurse that it is very important the box will go with the patient when she's discharged.
--- NOTE | 2019-06-14 19:42 | NUR ---
NURSE NOTES: Got report from Berenice ANDRADE. Pt in stable condition. Denies any pain. No s/s of distress or discomfort noted. Pt resting in bed comfortably. Bed in low and locked position, call light within reach, bedside table within reach. Continue to monitor.
[2019-06-14 20:00] VITALS: BP 136/75
[2019-06-14] MEDS: Atorvastatin 20mg tab ORAL SCH (21:16)
[2019-06-15] VITALS: BP 120/66
[2019-06-15 04:00] VITALS: BP 144/70
--- NOTE | 2019-06-15 07:47 | NUR ---
HAND-OFF: Report given to Carla ANDRADE.
--- NOTE | 2019-06-15 07:52 | NUR ---
NURSE NOTES: pt in bed sleeping comfortably food is at bedside will help feed pt. Pt on color television console monitor no signs of cardiac or respiratory distress at this time. Bed is locked and in lowest position. Side rails X3 are up, bed alarm is on. will continue to follow plans of care.
[2019-06-15 08:00] VITALS: BP 131/60
[2019-06-15] MEDS: Nuedexta Capsule 20/10mg ORAL SCH ×2 (09:53→21:14)
[2019-06-15 12:00] VITALS: BP 120/52
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
--- NOTE | 2019-06-15 14:20 | NUR ---
P.T. NOTES S/P: APPROACHED PATIENT'S ROOM, TWICE TODAY, IN THE PM. EACH TIME, PATIENT FOUND LYING IN A SEMI-PASCUAL'S POSITION IN BED SLEEPING, DURING FIRST VISIT. PATIENT STATED, THAT SHE DEFERRED P.T. TX. TODAY. SECONDARY TO BEING VERY SLEEPY. AND DURING SECOND VISIT PATIENT "STATUS QUO" NOTIFIED RN OF PATIENT'S STATUS. WILL F/U NEXT TX.TIME AND CONT WITH P.T. PLAN. RSABADO.
[2019-06-15 16:00] VITALS: BP 145/66
--- NOTE | 2019-06-15 16:44 | NUR ---
NURSE NOTES: pt family member Steph/daughter requested to take Xiop[employer] box home today with her because she may not be here for mom's DC on Monday. She knows that she needs to mail it once the pt completes 2wks of wearing device. Pt started wearing device 06/14.
--- NOTE | 2019-06-15 18:14 | Geriatric Progress Note ---
Assessment/Plan Problems: (1) Embolic cerebral infarction (2) Hemiparesis affecting nondominant side as late effect of cerebrovascular accident (3) Frontal lobe and executive function deficit (4) History of traumatic head injury (5) History of trauma to spine (6) Hypertension (7) Dyslipidemia (8) Chronic pain syndrome (9) Pseudobulbar affect (10) Osteoarthritis (11) History of joint surgery (12) Hypothyroidism (acquired) (13) Iatrogenic hyperthyroidism Assessment/Plan Increased lethargy due to recent disrupted sleep. R/o metabolic or INTELLIGENCE CONSULTANT issue. Check labs. Continues dependent with max A for bed mobility. Expect d/c on Monday due to DME delivery. Discussed with: patient, hospital staff Subjective Interval Events Patient lethargic, but arousable. States she is OK, with more dysarthria - likely due to drowsiness. Staff reports sleeping during day, perhaps after being up and not sleeping for several days. Had small b.m., not eating well. VSS, no clinical changes noted otherwise. Subjective Denies discomfort, but limited responses due to drowsiness. Geriatric Geriatric Last 24 Hour Vital Signs Date Time Temp Pulse Resp B/P (MAP) Pulse Ox O2 Delivery O2 Flow Rate FiO2 06/15/19 16:00 98.4 63 20 145/66 (92) 97 06/15/19 16:00 82 06/15/19 12:00 88 06/15/19 12:00 98.1 62 18 120/52 (74) 96 06/15/19 09:00 Room Air 06/15/19 08:00 71 06/15/19 08:00 97.9 68 20 131/60 (83) 97 06/15/19 04:00 84 06/15/19 04:00 98.2 85 20 144/70 (94) 95 06/15/19 00:00 89 06/15/19 00:00 98.0 80 20 120/66 (84) 96 06/14/19 21:00 Room Air 06/14/19 20:00 97.9 96 20 136/75 (95) 94 06/14/19 20:00 101 Intake and Output 06/14/19 06/15/19 19:00 07:00 Intake Total 250 ml Balance 250 ml Intake Oral 250 ml # Voids 3 2 Current Medications Medications (Trade) Dose Ordered Sig/Sharda Route PRN Reason Start Time Stop Time Status Last Admin Dose Admin Acetaminophen (Tylenol) 650 mg Q4H PRN ORAL Mild Pain (Pain Scale 1-3) 06/10/19 17:00 07/10/19 16:59 06/12/19 21:17 Acetaminophen (Tylenol) 650 mg Q4H PRN ORAL fever 06/10/19 17:00 07/10/19 16:59 Atorvastatin Calcium (Lipitor) 40 mg BEDTIME ORAL 06/10/19 21:00 07/10/19 20:59 06/14/19 21:16 Cetylpyridinium Chloride (Cepacol) 1 lozg Q2H PRN KIERAN Pain Scale (3-5) 06/10/19 17:00 07/10/19 16:59 Clopidogrel Bisulfate (Plavix) 75 mg DAILY ORAL 06/10/19 20:30 07/10/19 20:29 06/15/19 09:53 Dextromethorphan/ Quinidine (Nuedexta Capsule) 1 cap Q12HR ORAL 06/10/19 21:00 07/10/19 20:59 06/15/19 09:53 Dextrose (Dextrose 50%) 25 ml Q30M PRN IV Hypoglycemia 06/10/19 17:00 07/10/19 16:59 Dextrose (Dextrose 50%) 50 ml Q30M PRN IV Hypoglycemia 06/10/19 17:00 07/10/19 16:59 Duloxetine HCl (Cymbalta) 60 mg DAILY ORAL 06/11/19 09:00 07/11/19 08:59 06/15/19 09:53 Levothyroxine Sodium (Synthroid) 75 mcg DAILY@0630 ORAL 06/13/19 06:30 07/11/19 06:29 06/15/19 06:21 Height (Feet): 5 Height (Inches): 2.00 Weight (Pounds): 116 General Appearance: no apparent distress, lethargic Eyes: bilateral anicteric Neck: full range of motion, no mass Respiratory: lungs clear, decreased breath sounds Cardiovascular: regular rate, rhythm Gastrointestinal: normal bowel sounds, non tender, soft, no mass, no organomegaly, non-distended Edema: no edema noted Generalized Neurologic: no new focality - but exam limited today by drowsiness. Eros Lee MD Jun 15, 2019 18:13
--- NOTE | 2019-06-15 19:21 | NUR ---
HAND-OFF: Report given to Kendal/LUPE, pt in stable condition.
--- NOTE | 2019-06-15 19:31 | NUR ---
NURSE NOTES: Pt in bed sleeping comfortably, respirations even and unlabored, appears peaceful. Pt on director internal audit no signs of cardiac or respiratory distress at this time. Bed is locked and in lowest position. Side rails X3, bed alarm is on. will continue to follow plan of care.
[2019-06-15 20:00] VITALS: BP 126/62
[2019-06-15] MEDS: Atorvastatin 20mg tab ORAL SCH (21:14)
[2019-06-16] VITALS: BP 119/59
[2019-06-16 04:00] VITALS: BP 109/56
--- NOTE | 2019-06-16 07:13 | NUR ---
HAND-OFF: Report given to LUPE Aguirre
--- NOTE | 2019-06-16 07:16 | NUR ---
NURSE NOTES: pt calmly sleeping. Food is at bedside. Pt on culinary intern no signs of cardiac or respiratory distress. Call light within reach. Bed in lowest position and locked, Bed alarm on, side rails up x 3 for safety. Will continue to monitor pt and labs.
[2019-06-16 08:00] VITALS: BP 121/70
[2019-06-16 08:50] LABS: BASOPHILS % (AUTO) 1.4 % (0.0-2.0); HEMOGLOBIN 11.8 G/DL (12.0-16.0); LYMPHOCYTES % (AUTO) 13.2 % (20.0-45.0); MEAN CORPUSCULAR VOLUME 94 FL (80-99); MONOCYTES % (AUTO) 11.4 % (1.0-10.0); NEUTROPHILS % (AUTO) 72.1 % (45.0-75.0); PLATELET COUNT 549 K/UL (150-450); RED BLOOD COUNT 3.71 M/UL (4.20-5.40); RED CELL DISTRIBUTION WIDTH 12.1 % (11.6-14.8); WHITE BLOOD COUNT 6.8 K/UL (4.8-10.8)
[2019-06-16 09:18] LABS: ALANINE AMINOTRANSFERASE 18 U/L (12-78); ALBUMIN 3.1 G/DL (3.4-5.0); ALBUMIN/GLOBULIN RATIO 0.7 (1.0-2.7); ALKALINE PHOSPHATASE 122 U/L (46-116); ANION GAP 11 mmol/L (5-15); ASPARTATE AMINO TRANSFERASE 43 U/L (15-37); BILIRUBIN,TOTAL 0.4 MG/DL (0.2-1.0); BLOOD UREA NITROGEN 14 mg/dL (7-18); CALCIUM 9.9 MG/DL (8.5-10.1); CARBON DIOXIDE 29 MMOL/L (21-32); CHLORIDE 100 MMOL/L (98-107); CREATININE 0.6 MG/DL (0.55-1.30); POTASSIUM 3.6 MMOL/L (3.5-5.1); SODIUM 140 MMOL/L (136-145)
[2019-06-16] MEDS: Nuedexta Capsule 20/10mg ORAL SCH ×2 (09:36→20:37)
[2019-06-16 12:00] VITALS: BP 140/68
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
[2019-06-16 16:00] VITALS: BP 129/65
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
--- NOTE | 2019-06-16 17:49 | Geriatric Progress Note ---
Assessment/Plan Problems: (1) Embolic cerebral infarction (2) Hemiparesis affecting nondominant side as late effect of cerebrovascular accident (3) Frontal lobe and executive function deficit (4) History of traumatic head injury (5) History of trauma to spine (6) Hypertension (7) Dyslipidemia (8) Chronic pain syndrome (9) Pseudobulbar affect (10) Osteoarthritis (11) History of joint surgery (12) Hypothyroidism (acquired) (13) Iatrogenic hyperthyroidism Assessment/Plan Expect d/c tomorrow if DME is delivered. No acute changes. Discussed d/c issues in detail with dtr. Will eRx prescriptions to dtr's pharmacy. Discussed with: patient, family, hospital staff Subjective Interval Events Patient alert, slightly less engaged, but denying c/o. Dtr at bedside. Staff reports patient woke up after visit yesterday, had several b.m., and is eating better today. Follows instructions. Labs unremarkable. Constitutional: Denies: chills, fever Respiratory: Denies: cough, shortness of breath Cardiovascular: Denies: chest pain, palpitations Gastrointestinal/Abdominal: Denies: abdominal pain, nausea Genitourinary: Denies: dysuria Subjective Responses with variable accuracy, but no apparent discomfort. Geriatric Geriatric Last 24 Hour Vital Signs Date Time Temp Pulse Resp B/P (MAP) Pulse Ox O2 Delivery O2 Flow Rate FiO2 06/16/19 12:00 72 06/16/19 09:00 Room Air 06/16/19 08:00 71 06/16/19 08:00 97.7 73 20 121/70 (87) 98 06/16/19 04:00 97.1 67 18 109/56 (73) 97 06/16/19 04:00 67 06/16/19 00:00 77 06/16/19 00:00 98.3 80 16 119/59 (79) 96 06/15/19 21:00 Room Air 06/15/19 20:00 98.3 76 20 126/62 (83) 97 06/15/19 20:00 78 Intake and Output 06/15/19 06/16/19 19:00 07:00 Intake Total 240 ml 500 ml Output Total 600 ml Balance 240 ml -100 ml Intake Oral 240 ml 240 ml Other 260 ml Output Urine Total 600 ml # Voids 2 2 # Bowel Movements 2 2 Laboratory Tests Test 06/16/19 07:03 White Blood Count 6.8 K/UL (4.8-10.8) Red Blood Count 3.71 M/UL (4.20-5.40) L Hemoglobin 11.8 G/DL (12.0-16.0) L Hematocrit 35.0 % (37.0-47.0) L Mean Corpuscular Volume 94 FL (80-99) Mean Corpuscular Hemoglobin 31.8 PG (27.0-31.0) H Mean Corpuscular Hemoglobin Concent 33.7 G/DL (32.0-36.0) Red Cell Distribution Width 12.1 % (11.6-14.8) Platelet Count 549 K/UL (150-450) H Mean Platelet Volume 5.6 FL (6.5-10.1) L Neutrophils (%) (Auto) 72.1 % (45.0-75.0) Lymphocytes (%) (Auto) 13.2 % (20.0-45.0) L Monocytes (%) (Auto) 11.4 % (1.0-10.0) H Eosinophils (%) (Auto) 2.0 % (0.0-3.0) Basophils (%) (Auto) 1.4 % (0.0-2.0) Sodium Level 140 MMOL/L (136-145) Potassium Level 3.6 MMOL/L (3.5-5.1) Chloride Level 100 MMOL/L (98-107) Carbon Dioxide Level 29 MMOL/L (21-32) Anion Gap 11 mmol/L (5-15) Blood Urea Nitrogen 14 mg/dL (7-18) Creatinine 0.6 MG/DL (0.55-1.30) Estimat Glomerular Filtration Rate > 60 mL/min (>60) Glucose Level 89 MG/DL (74-106) Calcium Level 9.9 MG/DL (8.5-10.1) Total Bilirubin 0.4 MG/DL (0.2-1.0) Aspartate Amino Transf (AST/SGOT) 43 U/L (15-37) H Alanine Aminotransferase (ALT/SGPT) 18 U/L (12-78) Alkaline Phosphatase 122 U/L (46-116) H Total Protein 7.6 G/DL (6.4-8.2) Albumin 3.1 G/DL (3.4-5.0) L Globulin 4.5 g/dL Albumin/Globulin Ratio 0.7 (1.0-2.7) L Current Medications Medications (Trade) Dose Ordered Sig/Sharda Route PRN Reason Start Time Stop Time Status Last Admin Dose Admin Acetaminophen (Tylenol) 650 mg Q4H PRN ORAL Mild Pain (Pain Scale 1-3) 06/10/19 17:00 07/10/19 16:59 06/12/19 21:17 Acetaminophen (Tylenol) 650 mg Q4H PRN ORAL fever 06/10/19 17:00 07/10/19 16:59 Atorvastatin Calcium (Lipitor) 40 mg BEDTIME ORAL 06/10/19 21:00 07/10/19 20:59 06/15/19 21:14 Cetylpyridinium Chloride (Cepacol) 1 lozg Q2H PRN KIERAN Pain Scale (3-5) 06/10/19 17:00 07/10/19 16:59 Clopidogrel Bisulfate (Plavix) 75 mg DAILY ORAL 06/10/19 20:30 07/10/19 20:29 06/16/19 09:36 Dextromethorphan/ Quinidine (Nuedexta Capsule) 1 cap Q12HR ORAL 06/10/19 21:00 07/10/19 20:59 06/16/19 09:36 Dextrose (Dextrose 50%) 25 ml Q30M PRN IV Hypoglycemia 06/10/19 17:00 07/10/19 16:59 Dextrose (Dextrose 50%) 50 ml Q30M PRN IV Hypoglycemia 06/10/19 17:00 07/10/19 16:59 Duloxetine HCl (Cymbalta) 60 mg DAILY ORAL 06/11/19 09:00 07/11/19 08:59 06/16/19 09:35 Levothyroxine Sodium (Synthroid) 75 mcg DAILY@0630 ORAL 06/13/19 06:30 07/11/19 06:29 06/16/19 06:30 Height (Feet): 5 Height (Inches): 2.00 Weight (Pounds): 116 General Appearance: no apparent distress, alert, non-toxic Eyes: bilateral anicteric ENT: normal voice Neck: full range of motion, no mass Respiratory: lungs clear, decreased breath sounds Cardiovascular: regular rate, rhythm Gastrointestinal: normal bowel sounds, non tender, soft, no mass, no organomegaly, non-distended Musculoskeletal: no calf tenderness Edema: no edema noted Generalized Neurologic: no new focality Eros Lee MD Jun 16, 2019 17:49
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
--- NOTE | 2019-06-16 19:45 | NUR ---
HAND-OFF: Report given to Fernanda/nurse, pt in stable condition.
[2019-06-16 20:00] VITALS: BP 120/64
--- NOTE | 2019-06-16 20:00 | NUR ---
NURSE NOTES: RECEIVED PATIENT LYING IN BED, APPEAR TO BE ASLEEP, HEARING DEFICIT, AWAKENED TO NAME, ALERT/ORIENTED TO PERSON, REALITY ORIENTATION DURING ASSESSMENT. NO SIGNS AND SYMPTOMS OF ACUTE CARDIO RESPIRATORY DISTRESS/SHORTNESS OF BREATH, DENIES CHEST PAIN, NO EDEMA NOTED. CONTINUE ON DOCUMENTATION ANALYST. IV INTACT TO LEFT HAND/GAUGE 24, NO REDNESS/SWELLING NOTED, SL. ABDOMEN SOFT/NON DISTENDED/BOWEL SOUNDS AUDIBLE, INCONTINENT OF BLADDER, CARE PROVIDED, ASSISTED WITH REPOSITIONING, TOLERATED WELL. SIDE RAILS UP X3/BED IN LOWEST POSITION FOR SAFETY, FREQUENT ROUNDING FOR SAFETY/NEEDS. CONTINUE WITH CURRENT PLAN OF CARE. NAD.
[2019-06-16] MEDS: Atorvastatin 20mg tab ORAL SCH (20:37)
[2019-06-17] VITALS: BP 117/71
[2019-06-17 04:00] VITALS: BP 149/73
--- NOTE | 2019-06-17 07:28 | NUR ---
NURSE NOTES: pt in bed sleeping, Continue manager monitoring, no signs of cardiac or respiratory distress at this time. Call light within reach, bed locked and in lowest position. Reposition pt. bed alarm is on, rails up x3 for safety. pt has plans of DC today. will continue to monitor pt and follow plans of care.
--- NOTE | 2019-06-17 07:39 | NUR ---
HAND-OFF: Report given to Amira GLOVER RN.
[2019-06-17 08:08] VITALS: BP 139/65
[2019-06-17] MEDS: Nuedexta Capsule 20/10mg ORAL SCH ×2 (08:46→21:01)
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
[2019-06-17 12:00] VITALS: BP 139/65
[2019-06-17 16:00] VITALS: BP 146/66
--- NOTE | 2019-06-17 19:45 | NUR ---
NURSE NOTES: Received pt and report from LUPE Aguirre. Observed pt resting in bed with both eyes closed, arousable to voice. Pt is A/Ox2-3. cardiac monitor is in placed; pt is NSR. IV site intact, asymptomatic, and patent. Bed is in the lowest position and locked. Call light and beside table is within reach. Pt has a discharge order with home health; awaiting for medical bed to arrive at pt's daughter's home in [place]. No signs/symptoms of acute distress noted at this time. Will continue plan of care.
--- NOTE | 2019-06-17 19:53 | NUR ---
HAND-OFF: Report given to Ines/rn, pt in stable condition. will be DC tomorrow, pt family requested to take home blue slider, pls make sure this gets endorsed to dayshift nurse.
[2019-06-17 20:00] VITALS: BP 127/65
[2019-06-17] MEDS: Atorvastatin 20mg tab ORAL SCH (21:01)
--- NOTE | 2019-06-17 21:32 | Geriatric Progress Note ---
Assessment/Plan Problems: (1) Embolic cerebral infarction (2) Hemiparesis affecting nondominant side as late effect of cerebrovascular accident (3) Frontal lobe and executive function deficit (4) History of traumatic head injury (5) History of trauma to spine (6) Hypertension (7) Dyslipidemia (8) Chronic pain syndrome (9) Pseudobulbar affect (10) Osteoarthritis (11) History of joint surgery (12) Hypothyroidism (acquired) (13) Iatrogenic hyperthyroidism Assessment/Plan Discharge delayed due to DME delivery. No indication of further neurologic events. Ziopatch to be read. Patient encouraged to eat more. Discussed with: patient, hospital staff Subjective Interval Events Patient denies discomfort. Staff reports no clinical issues, no changes. DME still not in place, d/c delayed until tomorrow. EKG with QTc 433. Monitor with PACs but no sustained dysrhythmias. P.o. intake marginal. Constitutional: Denies: chills, sweats Respiratory: Denies: cough, shortness of breath Cardiovascular: Denies: chest pain, palpitations Gastrointestinal/Abdominal: Denies: abdominal pain, diarrhea Genitourinary: Denies: dysuria Subjective Responses with variable accuracy, but no apparent discomfort. Geriatric Geriatric Last 24 Hour Vital Signs Date Time Temp Pulse Resp B/P (MAP) Pulse Ox O2 Delivery O2 Flow Rate FiO2 06/17/19 16:00 98.6 67 20 146/66 (92) 96 06/17/19 16:00 88 06/17/19 12:00 98.4 65 18 139/65 (89) 96 06/17/19 12:00 91 06/17/19 08:12 Room Air 06/17/19 08:08 97.2 74 20 139/65 (89) 98 06/17/19 08:00 71 06/17/19 04:00 72 06/17/19 04:00 98.0 82 20 149/73 (98) 98 06/17/19 00:00 97.9 56 20 117/71 (86) 96 06/17/19 00:00 77 06/16/19 21:58 69 Intake and Output 06/16/19 06/17/19 19:00 07:00 Intake Total 300 ml 420 ml Balance 300 ml 420 ml Intake Oral 300 ml 420 ml # Voids 1 3 Current Medications Medications (Trade) Dose Ordered Sig/Sharda Route PRN Reason Start Time Stop Time Status Last Admin Dose Admin Acetaminophen (Tylenol) 650 mg Q4H PRN ORAL Mild Pain (Pain Scale 1-3) 06/10/19 17:00 07/10/19 16:59 06/17/19 21:08 Acetaminophen (Tylenol) 650 mg Q4H PRN ORAL fever 06/10/19 17:00 07/10/19 16:59 Atorvastatin Calcium (Lipitor) 40 mg BEDTIME ORAL 06/10/19 21:00 07/10/19 20:59 06/17/19 21:01 Cetylpyridinium Chloride (Cepacol) 1 lozg Q2H PRN KIERAN Pain Scale (3-5) 06/10/19 17:00 07/10/19 16:59 Clopidogrel Bisulfate (Plavix) 75 mg DAILY ORAL 06/10/19 20:30 07/10/19 20:29 06/17/19 08:46 Dextromethorphan/ Quinidine (Nuedexta Capsule) 1 cap Q12HR ORAL 06/10/19 21:00 07/10/19 20:59 06/17/19 21:01 Dextrose (Dextrose 50%) 25 ml Q30M PRN IV Hypoglycemia 06/10/19 17:00 07/10/19 16:59 Dextrose (Dextrose 50%) 50 ml Q30M PRN IV Hypoglycemia 06/10/19 17:00 07/10/19 16:59 Duloxetine HCl (Cymbalta) 60 mg DAILY ORAL 06/11/19 09:00 07/11/19 08:59 06/17/19 08:46 Levothyroxine Sodium (Synthroid) 75 mcg DAILY@0630 ORAL 06/13/19 06:30 07/11/19 06:29 06/17/19 06:48 Height (Feet): 5 Height (Inches): 2.00 Weight (Pounds): 116 General Appearance: no apparent distress, alert, non-toxic Eyes: bilateral anicteric ENT: normal voice Neck: full range of motion, no mass Respiratory: lungs clear, decreased breath sounds Cardiovascular: regular rate, rhythm - occasional ectopy Gastrointestinal: normal bowel sounds, non tender, soft, no mass, no organomegaly, non-distended Edema: no edema noted Generalized Neurologic: no new focality - dense L hemiparesis Eros Lee MD Jun 17, 2019:32
[2019-06-18] VITALS: BP 122/55
--- NOTE | 2019-06-18 02:45 | NUR ---
NURSE NOTES: Observed pt asleep in bed with both eyes closed. No signs/symptoms of acute distress noted at this time. Will continue plan of care.
[2019-06-18 04:00] VITALS: BP 126/65
--- NOTE | 2019-06-18 07:30 | NUR ---
NURSE NOTES: Received report from LUPE Chacon. Observed pt eating breakfast, breathing even and unlabored in RA. No s/sx of acute distress, denies any pain. Bed on lowest position, call light within reach. Will continue plan of care.
--- NOTE | 2019-06-18 07:47 | NUR ---
HAND-OFF: Report given to LUPE Merchant. Plan of care endorsed.
[2019-06-18 08:00] VITALS: BP 130/54
[2019-06-18] MEDS: Nuedexta Capsule 20/10mg ORAL SCH (09:22)
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
[2019-06-18 12:00] VITALS: BP 128/77
--- NOTE | 2019-06-18 12:10 | NUR ---
PT WEEKLY PROGRESS NOTE Patient being seen by PT for therapeutic activities and neuromuscular re-education. Patient requires max assist for bed mobility. Have been working on lifting patient's buttocks from the surface of the bed, patient only able to partially lift with max assist. Patient demonstrating improvement in sitting balance/posture at the EOB. Patient is unable to transfer or stand at this time. Patient will benefit from continued skilled inpatient PT intervention to address strength, balance and safety for increased level of functional mobility.
--- NOTE | 2019-06-18 15:51 | Geriatric Progress Note ---
Assessment/Plan Problems: (1) Embolic cerebral infarction (2) Hemiparesis affecting nondominant side as late effect of cerebrovascular accident (3) Frontal lobe and executive function deficit (4) History of traumatic head injury (5) History of trauma to spine (6) Hypertension (7) Dyslipidemia (8) Chronic pain syndrome (9) Pseudobulbar affect (10) Osteoarthritis (11) History of joint surgery (12) Hypothyroidism (acquired) (13) Iatrogenic hyperthyroidism Assessment/Plan Ambulance to [facility] at 16:00. No further change. Appears stabilized for transfer to home with 24hr care in [place]. Discussed with: patient, hospital staff Subjective Interval Events Patient alert in bed. Disoriented, believes she has already left [place], but aware she will return to [place]. Denies new c/o. Reports dissatisfaction with staff's attentiveness, but situations describe appear confabulatory. More alert per P.T. Slightly more mobile. Atrial tach without fibrillation on monitor reported. No other functional changes. Constitutional: Denies: chills, fever Respiratory: Denies: cough, shortness of breath Cardiovascular: Denies: chest pain, palpitations Gastrointestinal/Abdominal: Denies: abdominal pain, diarrhea, nausea Subjective Responses with variable accuracy, but no apparent discomfort. Geriatric Geriatric Last 24 Hour Vital Signs Date Time Temp Pulse Resp B/P (MAP) Pulse Ox O2 Delivery O2 Flow Rate FiO2 06/18/19 12:00 97.3 96 18 128/77 (94) 94 06/18/19 11:52 83 06/18/19 09:00 Room Air 06/18/19 08:00 97.6 76 18 130/54 (79) 99 06/18/19 07:53 77 06/18/19 04:00 64 06/18/19 04:00 97.6 64 19 126/65 (85) 98 06/18/19 00:00 72 06/18/19 00:00 98.4 72 20 122/55 (77) 97 06/17/19 21:00 Room Air 06/17/19 20:00 80 06/17/19 20:00 98.1 80 18 127/65 (85) 95 06/17/19 16:00 98.6 67 20 146/66 (92) 96 06/17/19 16:00 88 Intake and Output 06/17/19 06/18/19 19:00 07:00 Intake Total 480 ml 320 ml Balance 480 ml 320 ml Intake Oral 480 ml 320 ml # Voids 3 2 # Bowel Movements 1 Current Medications Medications (Trade) Dose Ordered Sig/Sharda Route PRN Reason Start Time Stop Time Status Last Admin Dose Admin Acetaminophen (Tylenol) 650 mg Q4H PRN ORAL Mild Pain (Pain Scale 1-3) 06/10/19 17:00 07/10/19 16:59 06/17/19 21:08 Acetaminophen (Tylenol) 650 mg Q4H PRN ORAL fever 06/10/19 17:00 07/10/19 16:59 Atorvastatin Calcium (Lipitor) 40 mg BEDTIME ORAL 06/10/19 21:00 07/10/19 20:59 06/17/19 21:01 Cetylpyridinium Chloride (Cepacol) 1 lozg Q2H PRN KIERAN Pain Scale (3-5) 06/10/19 17:00 07/10/19 16:59 Clopidogrel Bisulfate (Plavix) 75 mg DAILY ORAL 06/10/19 20:30 07/10/19 20:29 06/18/19 09:22 Dextromethorphan/ Quinidine (Nuedexta Capsule) 1 cap Q12HR ORAL 06/10/19 21:00 07/10/19 20:59 06/18/19 09:22 Dextrose (Dextrose 50%) 25 ml Q30M PRN IV Hypoglycemia 06/10/19 17:00 07/10/19 16:59 Dextrose (Dextrose 50%) 50 ml Q30M PRN IV Hypoglycemia 06/10/19 17:00 07/10/19 16:59 Duloxetine HCl (Cymbalta) 60 mg DAILY ORAL 06/11/19 09:00 07/11/19 08:59 06/18/19 09:22 Levothyroxine Sodium (Synthroid) 75 mcg DAILY@0630 ORAL 06/13/19 06:30 07/11/19 06:29 06/18/19 06:10 Height (Feet): 5 Height (Inches): 2.00 Weight (Pounds): 116 General Appearance: no apparent distress, alert, non-toxic Eyes: bilateral anicteric ENT: normal voice Neck: full range of motion, no mass Respiratory: lungs clear, decreased breath sounds Cardiovascular: regular rate, rhythm Gastrointestinal: normal bowel sounds, non tender, soft, no mass, no organomegaly, non-distended Musculoskeletal: no calf tenderness Edema: no edema noted Generalized Neurologic: no new focality Eros Lee MD Jun 18, 2019 15:51
[2019-06-18 16:00] VITALS: BP 131/90
--- NOTE | 2019-06-18 17:00 | NUR ---
NURSE NOTES: Pt was picked up by ambulance personnel. Report given. Pt in stable condition, IV and tele monitor removed. Called the daughter of the pt to let her know that patient is being discharged.
== END 2019-06-18 18:54 | disposition home health service (06) | DRG 65 ==
LOC: EDBD 11:19 → EMR 14:08 → 4E 14:12 → EDBEDREQ 14:32 → 2E 18:14
DX: I63.431 Cerebral infarction due to embolism of right posterior cerebral artery (principal); G93.49 Other encephalopathy; I47.1 Supraventricular tachycardia; I69.354 Hemiplegia and hemiparesis following cerebral infarction affecting left non-dominant side; I10 Essential (primary) hypertension; E78.5 Hyperlipidemia, unspecified; F48.2 Pseudobulbar affect; S06.890S Other specified intracranial injury without loss of consciousness, sequela; V89.2XXS Person injured in unspecified motor-vehicle accident, traffic, sequela; K44.9 Diaphragmatic hernia without obstruction or gangrene; M19.90 Unspecified osteoarthritis, unspecified site; E03.9 Hypothyroidism, unspecified; G89.4 Chronic pain syndrome; R20.8 Other disturbances of skin sensation; T14.90XS Injury, unspecified, sequela; E05.80 Other thyrotoxicosis without thyrotoxic crisis or storm; T38.1X5A Adverse effect of thyroid hormones and substitutes, initial encounter; G51.0 Bell's palsy; Z66 Do not resuscitate
CPT/HCPCS: 36415; 70450; 70496; 70498; 70551; 71045; 80048; 80053; 80061; 82550; 82553; 83605; 83690; 83880; 84439; 84443; 84484; 85025; 86710; 87040; 93005; 93306; 93880; 99285